=== PATIENT | female | born 1990 | race Caucasian/White ===

== ENCOUNTER → 2017-01-08 | Outpatient (CLI) | payer BC | END | disposition disaster alternative care site (69) | LOC: GRAD 13:23 | DX: N63 Unspecified lump in breast (principal) ==

== ENCOUNTER → 2017-04-28 | Outpatient (CLI) | payer BC | END | disposition disaster alternative care site (69) | LOC: GRAD 08:19 | DX: R10.13 Epigastric pain (principal) ==

== ENCOUNTER → 2017-05-07 | Outpatient (CLI) | payer BC | END | disposition disaster alternative care site (69) | LOC: GRAD 05-04 11:00 | DX: R10.11 Right upper quadrant pain (principal); R93.2 Abnormal findings on diagnostic imaging of liver and biliary tract | CPT/HCPCS: A9537 ==